=== PATIENT | male | born 1965 | race Caucasian/White ===

== ENCOUNTER 2017-10-05 16:24 | Emergency (ER) | payer BC ==
[2017-10-05] MEDS ORDERED: Olopatadine 0.1% OPHTH (NF) 1 DROP BTL BOTH EYES SCH (20:00)
--- NOTE | 2017-10-05 20:06 | ED ---
Throat Pain/Nasal Congestion - HPI Summary HPI Summary: This is scribe Cecilio Lovelace documenting for attending Denise Lunsford MD. A 52 y/o male presents to ED c/o erythema of eye. According to the patient, he suddenly had redness of one eye. When he rubbed his other eye, the eye became red. "pt has a hx of cystic fibrosis .sttaes appx 2 hrs ago he developed irritation r eye thatn started rubbing his eyes and it went to the other one arrives with reddened scleras and blepheritis took 2 benedryl riverboat [employer]". PMHx of cystic fibrosis. I, Dr. Lunsford, personally performed the services described in this documentation as scribed in my presence and it is both accurate and complete. - History of Current Complaint Chief Complaint: EDEyeProblem Time Seen by Provider: 10/05/17 19:24 Hx Obtained From: Patient Onset/Duration: Sudden Onset, Lasting Hours, Still Present Associated Signs And Symptoms: Positive: Negative Cough: None - Allergies/Home Medications Allergies/Adverse Reactions: Allergies Allergy/AdvReac Type Severity Reaction Status Date / Time bee venom protein (honey bee) Allergy Anaphylatic Verified 10/05/17 18:50 Shock beeswax Allergy Hives Verified 10/05/17 16:39 occuflux Allergy Unknown Uncoded 10/05/17 16:40 Reaction Details PMH/Surg Hx/FS Hx/Imm Hx Endocrine/Hematology History: Reports: Other Endocrine/Hematological Disorders - Cystic Fibrosis Respiratory History: Denies: Hx Asthma Infectious Disease History: No Infectious Disease History: Denies: Traveled Outside the [place] in Last 30 Days - Family History Known Family History: Negative: Hypertension - Social History Alcohol Use: Rare Substance Use Type: Reports: None Smoking Status (MU): Never Smoked Tobacco Review of Systems Negative: Fever Positive: Erythema All Other Systems Reviewed And Are Negative: Yes Physical Exam - Summary Physical Exam Summary: VITAL SIGNS: Reviewed. GENERAL: Patient is a well-developed and nourished male who is lying comfortable in the stretcher. Patient is not in any acute respiratory distress. HEAD AND FACE: No signs of trauma. No ecchymosis, hematomas or skull depressions. No sinus tenderness. EYES: PERRLA, EOMI x 2, no nystagmus, bilateral conjunctival injection EARS: Hearing grossly intact. Ear canals and tympanic membranes are within normal limits. MOUTH: Oropharynx within normal limits. NECK: Supple, trachea is midline, no adenopathy, no JVD, no carotid bruit, no c- spine tenderness, neck with full ROM. CHEST: Symmetric, no tenderness at palpation LUNGS: Clear to auscultation bilaterally. No wheezing or crackles. CVS: Regular rate and rhythm, S1 and S2 present, no murmurs or gallops appreciated. ABDOMEN: Soft, non-tender. No signs of distention. No rebound no guarding, and no masses palpated. Bowel sounds are normal. EXTREMITIES: FROM in all major joints, no cyanosis or clubbing, mild swelling of legs. NEURO: Alert and oriented x 3. No acute neurological deficits. Speech is normal and follows commands. SKIN: Dry and warm Triage Information Reviewed: Yes Vital Signs On Initial Exam: Initial Vitals Temp Pulse Resp BP Pulse Ox 97.3 F 64 16 139/77 99 10/05/17 16:29 10/05/17 16:29 10/05/17 16:29 10/05/17 16:29 10/05/17 16:29 Vital Signs Reviewed: Yes Diagnostics - Vital Signs Vital Signs Temp Pulse Resp BP Pulse Ox 10/05/17 16:29 97.3 F 64 16 139/77 99 - Laboratory Lab Statement: Any lab studies that have been ordered have been reviewed, and results considered in the medical decision making process. EENT Course/Dx - Course Course Of Treatment: A 52 y/o male presents to ED c/o erythema of eye. No laboratory scans were done. In the ED course, the patient recieved Patanol. Patient will be discharged with a diagnosis of allergic conjunctivitis. Patient will be be sent home with Patanol eye drops and is to follow up with Ophthalmology in 1-2 days. Patient is to apply 1 drop of Patanol to each eye every four hours. Patient is agreeable with this plan. - Diagnoses Provider Diagnoses: Allergic conjunctivitis Discharge - Sign-Out/Discharge Documenting (check all that apply): Patient Departure - DISCHARGE - Discharge Plan Condition: Stable Disposition: HOME Patient Education Materials: Conjunctivitis (ED) Referrals: Randall Diop MD [Medical Doctor] - 2 Days Additional Instructions: FOLLOW UP WITH OPHTHALMOLOGY IN 1-2 DAYS. ADD ONE DROP OF PATANOL TO EACH EYE EVERY FOUR HOURS. RETURN TO THE ED FOR ANY NEW OR WORSENING SYMPTOMS.
[2017-10-05] MEDS ORDERED: Naphazoline/Pheniramine OPTH* 5 ML BTL BOTH EYES SCH (21:00)
[2017-10-05 21:38] VITALS: BP 0/0
== END 2017-10-05 21:35 | disposition home or self-care (01) ==
LOC: ED 16:24
DX: H10.13 Acute atopic conjunctivitis, bilateral (principal); E84.9 Cystic fibrosis, unspecified
CPT/HCPCS: 99282; A9270-GY